=== PATIENT | female | born 1965 | race Caucasian/White ===

== ENCOUNTER 2017-05-26 10:25 | Emergency (ER) | payer BC ==
[~2017-05-26] VITALS: Ht 157.5 cm; Wt 75.4 kg
[2017-05-26] MEDS ORDERED: METHOTREXATE2.5 MG PO (10:57)
[2017-05-26 11:10] LABS: HEMATOCRIT 38.3 % (36.0-46.0); MCH 31.1 PG (29.0-34.0); MCHC 34.2 G/DL (30.0-36.0); MEAN PLAT.VOLUME 10.7 uM^3 (9.5-12.4); PLATELET COUNT 184 K/uL (156-360); RBC DIS.WIDTH-CV 13.9 % (11.8-14.6); RBC DIS.WIDTH-SD 46.6 % (39-53); RED BLOOD COUNT 4.21 M/uL (3.80-5.20); WHITE BLOOD COUNT 13.8 K/uL (4.1-10.2)
[2017-05-26 11:21] LABS: CHLORIDE 108 mEq/L (99-109); POTASSIUM 3.6 mEq/L (3.7-5.4); SODIUM 141 mEq/L (136-147)
[2017-05-26 11:24] LABS: ANION GAP 9 MEQ/L (2-14); GLUCOSE 118 mg/dL (70-99)
[2017-05-26 11:25] LABS: TOTAL BILIRUBIN 0.5 mg/dL (0.0-1.0)
[2017-05-26 11:26] LABS: ALKALINE PHOSPHATASE 103 IU/L (3-129)
[2017-05-26 11:27] LABS: GFR ESTIMATE (CALCULATED) > 59 mL/min/
[2017-05-26 11:28] LABS: UREA NITROGEN (BUN) 12 mg/dL (9-23)
[2017-05-26 11:30] LABS: LIPASE 26 U/L (1.0-51.0)
[2017-05-26 12:20] LABS: ADD MIUA? YES; BILIRUBIN NEGATIVE; BLOOD MODERATE; COLOR AMBER ((YELLOW)); GLUCOSE (STRIP) NEGATIVE; KETONES NEGATIVE; LEUKOCYTES TRACE; NITRITE NEGATIVE; PROTEIN (STRIP) 30; SPECIFIC GRAVITY 1.023 (1.000-1.030)
[2017-05-26 12:26] LABS: HBSG INDEX 0.19; HPCA INDEX 0.53
[2017-05-26 12:27] LABS: ANTI-HEPATITIS A VIRUS (IGM) Nonreactive; HAV INDEX 0.13
[2017-05-26 12:27] LABS: BACTERIA RARE /HPF; CALCIUM OXALATE CRYSTALS 4+ /HPF; EPITHELIAL CELLS 2+ /HPF; HYALINE CASTS 0-5 /LPF; MUCUS 2+ /LPF; RED BLOOD CELLS 15-20 /HPF (0-5); UCUL ADDED? YES
[2017-05-26 12:28] LABS: ANTI-HEPATITIS B CORE (IGM) Nonreactive
[2017-05-26 13:32] LABS: BASOPHIL COUNT 0.2 K/uL (0-0.1); EOSINOPHIL (%) 1.7 % (0-5); EOSINOPHIL COUNT 0.2 K/uL (0-0.3); IMMATURE GRANULOCYTE (%) 0.5 % (0.0-0.7); IMMATURE GRANULOCYTE COUNT 0.1 K/uL; INSTRUMENT ABS NEUTROPHIL CT 3.5 K/uL; LYMPHOCYTE COUNT 8.4 K/uL (1.0-2.8); MONOCYTE (%) 10.6 % (3-12); MONOCYTE COUNT 1.5 K/uL (0-0.8); NEUTROPHIL (%) 25.3 % (45-76); NEUTROPHIL COUNT 3.5 K/uL (1.8-6.4)
[2017-05-26] MEDS ORDERED: ZOFRAN4 MG PO (13:50)
[2017-05-26] MEDS ORDERED: PENNSAID2 GM TP (14:30)
[2017-05-26 14:39] VITALS: BP 98/60
[2017-05-27] MEDS ORDERED: PANTOPRAZOLE SO20 MG PO (13:56)
== END 2017-05-26 14:40 | disposition home or self-care (01) ==
LOC: EME 10:25
PROVIDERS: Emergency Medicine
DX: B34.9 Viral infection, unspecified (principal); R79.89 Other specified abnormal findings of blood chemistry; R19.7 Diarrhea, unspecified; R21 Rash and other nonspecific skin eruption; J02.9 Acute pharyngitis, unspecified; M54.2 Cervicalgia; L40.50 Arthropathic psoriasis, unspecified; Z90.49 Acquired absence of other specified parts of digestive tract; Z87.891 Personal history of nicotine dependence
CPT/HCPCS: 76705; 80053; 80074; 81003; 83605; 83690; 85025; 87040; 87086; 87651 90; 99281; 99285; J7030